=== PATIENT | male | born 1975 ===

== ENCOUNTER 2017-12-13 09:18 | Emergency (ER) | payer OTHER, BC ==
[2017-12-13 09:23] VITALS: BMI 30.8
[2017-12-13 09:55] VITALS: O2SAT 97
--- NOTE | 2017-12-13 09:57 | ED PDOC ---
Arrival/HPI - General Chief Complaint: Anxiety Time Seen by Provider: 12/13/17 09:45 Historian: Patient - History of Present Illness Narrative History of Present Illness (Text): 12/13/17 09:54 42-year-old male presents today with extreme anxiety. Patient states since this month he's been having increased stress at work and he has been interrogated twice regarding his productivity at work. Patient states he was seen by his primary care physician and was started on Xanax but has stopped taking it because work told him that he could be held accountable if something were to happen while he was taking those medications on the job. Patient states while he was getting interrogated today he developed palpitations and extreme anxiety. Patient denies any chest pain or shortness of breath at present time. Patient states he thought that he could take care of this at home on his own but the anxiety and stress is just too much for him. He denies suicidal or homicidal ideations. Past Medical History - Provider Review Nursing Documentation Reviewed: Yes - Travel History Have you recently traveled outside [place] w/in the past 3 mons?: No - Infectious Disease Hx of Infectious Diseases: None - Tetanus Immunization Tetanus Immunization: Unknown - Psychiatric Hx Substance Use: No Family/Social History - Physician Review Nursing Documentation Reviewed: Yes Family/Social History: Unknown Family HX Smoking Status: Never Smoked Hx Alcohol Use: Yes Frequency of alcohol use: Socially Hx Substance Use: No Allergies/Home Meds Allergies/Adverse Reactions: Allergies Iodine and Iodide Containing Produc Allergy (Verified 12/13/17 09:24) VOMITING Home Medications: Home Meds Medication Instructions Recorded Confirmed No Known Home Med 12/13/17 12/13/17 Review of Systems - Review of Systems Constitutional: absent: Fatigue, Fevers Respiratory: absent: SOB, Cough Cardiovascular: Palpitations. absent: Chest Pain, Syncope Gastrointestinal: absent: Abdominal Pain, Vomiting Genitourinary Male: absent: Dysuria, Frequency, Hematuria Musculoskeletal: absent: Arthralgias, Back Pain, Neck Pain Skin: absent: Rash, Pruritis Neurological: absent: Headache, Dizziness Psychiatric: Anxiety. absent: Suicidal Ideation Physical Exam Vital Signs Reviewed: Yes Vital Signs Temp Pulse Resp BP Pulse Ox 12/13/17 09:39 99.3 F 99 H 19 153/76 H 97 Temperature: Afebrile Blood Pressure: Normal Pulse: Tachycardic Respiratory Rate: Normal Appearance: Positive for: Well-Appearing, Non-Toxic, Comfortable Pain Distress: None Mental Status: Positive for: Alert and Oriented X 3, other (anxious) - Systems Exam Head: Present: Atraumatic Mouth: Present: Moist Mucous Membranes Neck: Present: Normal Range of Motion Respiratory/Chest: Present: Clear to Auscultation, Good Air Exchange. No: Respiratory Distress, Accessory Muscle Use Cardiovascular: Present: Regular Rate and Rhythm, Normal S1, S2. No: Murmurs Upper Extremity: Present: Normal ROM Lower Extremity: Present: Normal ROM Neurological: Present: GCS=15, Speech Normal Skin: Present: Warm, Dry, Normal Color. No: Rashes Psychiatric: Present: Alert, Oriented x 3, Anxious Medical Decision Making ED Course and Treatment: 12/13/17 09:57 Patient is nontoxic well-appearing in no distress vital signs are stable. CBC WNL CMP WNL Tylenol WNL Salicylate WNL Alcohol level WNL Urine drug screen wnl UA; wnl cxr: wnl ekg: NSR at 98b/m no st elevations, normal axis, normal intervals. pt is medically cleared for PES evaluation Patient was seen and evaluated by PES screener: rikki Patient was advised to follow-up with mental [facility] and return if symptoms worsen persist or if new concerning symptoms develop Patient verbalizes understanding of discharge instructions and need for immediate followup. all aspects of this case were discussed the attending of record. Impression; anxiety Followup with behavioral health center within the next 2 days follow up with the primary care physician within the next 2 days return if symptoms worsen, persist or if new symptoms develop. 12/13/17 13:03 Reassessment Condition: Re-examined, Improved - Lab Interpretations Lab Results: 12/13/17 10:15 12/13/17 10:15 Lab Results 12/13/17 10:15: Alcohol, Quantitative < 10 12/13/17 10:15: Salicylates < 1 L, Acetaminophen < 10.0 L 12/13/17 10:15: Urine Opiates Screen Negative, Urine Methadone Screen Negative, Ur Barbiturates Screen Negative, Ur Phencyclidine Scrn Negative, Ur Amphetamines Screen Negative, U Benzodiazepines Scrn Negative, U Oth Cocaine Metabols Negative, U Cannabinoids Screen Negative 12/13/17 10:15: Sodium 143, Potassium 3.8, Chloride 105, Carbon Dioxide 23, Anion Gap 19, BUN 16, Creatinine 0.9, Est GFR ( Amer) > 60, Est GFR (Non- Af Amer) > 60, Random Glucose 107, Calcium 9.5, Total Bilirubin 0.7, AST 50, ALT 111 H, Alkaline Phosphatase 79, Total Protein 7.7, Albumin 4.7, Globulin 3.0 , Albumin/Globulin Ratio 1.6 12/13/17 10:15: Urine Color Yellow, Urine Appearance Clear, Urine pH 6.0, Ur Specific [place] >= 1.030, Urine Protein 30 H, Urine Glucose (UA) Negative, Urine Ketones Negative, Urine Blood Negative, Urine Nitrate Negative, Urine Bilirubin Negative, Urine Urobilinogen 0.2, Ur Leukocyte Esterase Negative, Urine RBC 0 - 2, Urine WBC 1 - 3, Ur Epithelial Cells None, Urine Bacteria Mod 12/13/17 10:15: WBC 10.0, RBC 5.63, Hgb 16.5, Hct 47.1, MCV 83.7, MCH 29.3, MCHC 35.0, RDW 13.3, Plt Count 247, MPV 9.2, Gran % 74.0 H, Lymph % (Auto) 16.7 L, Snyder % (Auto) 8.6 H, Eos % (Auto) 0.6 L, Baso % (Auto) 0.1, Gran # 7.39 H, Lymph # (Auto) 1.7, Snyder # (Auto) 0.9 H, Eos # (Auto) 0.1, Baso # (Auto) 0.01 - RAD Interpretation Radiology Orders: 12/13/17 09:54 CHEST PORTABLE [RAD] Stat Disposition/Present on Arrival - Present on Arrival Any Indicators Present on Arrival: No History of DVT/PE: No History of Uncontrolled Diabetes: No Urinary Catheter: No History of Decub. Ulcer: No History Surgical Site Infection Following: None - Disposition Have Diagnosis and Disposition been Completed?: Yes Diagnosis: Anxiety Disposition: HOME/ ROUTINE Disposition Time: 12:30 Patient Plan: Discharge Condition: GOOD Discharge Instructions (ExitCare): Anxiety, Adult (DC) Additional Instructions: Followup with [facility] within the next 2 days follow up with the primary care physician within the next 2 days return if symptoms worsen, persist or if new symptoms develop. Referrals: PCP,NO [Primary Care Provider] - Follow up with primary Tawnya Pichardo MD [Medical Doctor] - Follow up with primary [facility] [Outside] - Follow up with primary [facility] [Outside] - Follow up with primary Forms: [facility] [facility] (Kyr[place]z), WORK NOTE
[2017-12-13 10:32] LABS: BASO # 0.01 K/mm3 (0.0-2.0); BASO % 0.1 % (0.0-3.0); EOS # 0.1 (0.0-0.7); EOS % 0.6 % (1.5-5.0); GRAN # 7.39 (1.4-6.5); HEMOGLOBIN 16.5 g/dL (14.0-18.0); LYMPH # 1.7 (1.2-3.4); LYMPH % 16.7 % (22.0-35.0); MEAN CELL VOLUME 83.7 fl (80.0-105.0); MEAN CORPUSCULAR HEMOGLOBIN 29.3 pg (25.0-35.0); MEAN PLATELET VOLUME 9.2 fl (7.0-11.0); MONO # 0.9 (0.1-0.6); MONO % 8.6 % (1.0-6.0); RBC 5.63 10^6/uL (3.5-6.1); RED CELL DISTRIBUTION WIDTH 13.3 % (11.5-14.5); URINE BILIRUBIN NEGATIVE (NEGATIVE); URINE BLOOD NEGATIVE (NEGATIVE); URINE GLUCOSE (UA) NEGATIVE (NEGATIVE); URINE LEUKOCYTE ESTERASE NEGATIVE Leu/uL (NEGATIVE); URINE PROTEIN 30 mg/dL (<30 mg/dL); URINE UROBILINOGEN 0.2 E.U./dL (<1 E.U./dL)
[2017-12-13 10:33] LABS: URINE APPEARANCE CLEAR (CLEAR); URINE COLOR YELLOW (YELLOW)
[2017-12-13 10:46] LABS: ALB/GLOB RATIO 1.6 (1.1-1.8); ALBUMIN 4.7 g/dL (3.0-4.8); ALT/SGPT 111 U/L (7-56); AST/SGOT 50 U/L (17-59); BLOOD UREA NITROGEN 16 mg/dL (7-21); CALCIUM 9.5 mg/dL (8.4-10.5); GFR NON-AFRICAN AMERICAN > 60
[2017-12-13 10:50] LABS: ACETAMINOPHEN < 10.0 ug/ml (10.0-20.0); SALICYLATE < 1 mg/dL (2.0-20.0)
[2017-12-13 11:07] LABS: URINE BACTERIA MOD (NEG); URINE RBC 0 - 2 /hpf (0-2)
[2017-12-13 11:10] LABS: BARBITURATES, UR NEGATIVE (NEGATIVE); BENZODIAZEPINES, UR NEGATIVE (NEGATIVE); OPIATES, UR NEGATIVE (NEGATIVE); PHENCYCLIDINE, UR NEGATIVE (NEGATIVE)
--- NOTE | 2017-12-13 11:21 | RAD ---
Date of service: 12/13/2017 HISTORY: pes eval/anxiety COMPARISON: No prior. FINDINGS: LUNGS: No active pulmonary disease. PLEURA: No significant pleural effusion identified, no pneumothorax apparent. CARDIOVASCULAR: Normal. OSSEOUS STRUCTURES: No significant abnormalities. VISUALIZED UPPER ABDOMEN: Normal. OTHER FINDINGS: None. IMPRESSION: No active disease.
[2017-12-13 13:22] VITALS: BP 136/87; PULSE 96; RESP 18
[2017-12-13 13:24] VITALS: TEMP 98
--- NOTE | 2017-12-13 15:35 | CARD ---
APPROVED REPORT Date of service: 12/13/2017 EKG Measurement Heart [id number] <Conclusion> Normal sinus rhythm Normal ECG
== END 2017-12-13 13:22 | disposition home or self-care (01) ==
LOC: ED 09:18
DX: F41.9 Anxiety disorder, unspecified (principal)